=== PATIENT | male | born 1960 | race Caucasian/White ===

== ENCOUNTER 2016-10-02 06:47 | Day surgery (SDC) | payer BC ==
[~2016-10-02 06:47] MED LIST: ACETAMINOPHEN 500 MG TABLET PO PRN; HYDROmorphone HCL 2 MG/ML VIAL IV PRN; MAG HYDROX/ALUMINUM HYD/SIMETH 30 ML UDC PO PRN; MAGNESIUM HYDROXIDE 30 ML UDC PO PRN; ONDANSETRON HCL/PF 2 MG/ML VIAL IV PRN; PROMETHAZINE HCL 25 MG in DEXTROSE 5 % IN WATER 50 ML IV PRN; RINGER'S SOLUTION,LACTATED 1,000 ML IV PRN; ZOLPIDEM TARTRATE 5 MG TABLET PO PRN; ceFAZolin SODIUM 1 GM VIAL IV PRN; diphenhydrAMINE HCL 50 MG/ML VIAL IV PRN; oxyCODONE HCL/ACETAMINOPHEN 1 TAB TABLET PO PRN
[2016-10-02] MEDS ORDERED: RINGER'S SOLUTION,LACTATED 1,000 ML IV ONE ×2 (07:18→08:45)
--- NOTE | 2016-10-02 09:48 | OR ---
Operative Report - Dictated Report Narrative: Date: 10/02/2016 Physician: Sincere Elias M.D. Tipping Machine Operator Automatic: Nicholas Aldrich PA-C Preoperative diagnosis: Right Shoulder supraspinatus rotator cuff tear Postoperative diagnosis: Right Shoulder supraspinatus rotator cuff tear, chondromalacia humeral head Procedure: Right shoulder arthroscopy with mini open rotator cuff repair Anesthesia: General plus regional Complications: None Estimated blood loss: Minimal Specimens: None Retained implants: [employer] 4.5 mm peek helicoil anchor 1, footprint anchor 1 Drains: None Indications: Mr. Chase Is a 56 year-old gentleman who has been followed in my clinic with complaints of shoulder pain consistent rotator cuff pain. Physical exam and diagnostic imaging were consistent with his complaints and concern for full- thickness rotator cuff tear. Conservative measures have failed including, but not limited to, passage of time, activity modification, medications, physical therapy/home exercise program, or injections. The risks, benefits, and alternatives were discussed in clinic. The risks being , bleeding, infection, blood clots, nerve, tendon, ligament, blood vessel injury, persistent pain, arthrosis, stiffness, need for prolonged therapy, need for additional procedures, and persistent symptoms. Consent was obtained in the clinic. Procedure: After marking the correct extremity in the preoperative holding area, a timeout was performed in the operating room. IV antibiotics consisting of Ancef were administered prior to the procedure. A general followed by regional anesthetic was induced by the nurse corporate events director. This was in the supine position, then the patient was transitioned to a beachchair position with all bony prominences well-padded, head in neutral, the nonoperative arm well supported, and the legs padded with SCDs in place. The operative shoulder was then prepped and draped in a standard sterile fashion. Preoperatively the shoulder had full passive range of motion, and know gross instability. After marking out the bony landmarks, saline was infused into the joint through a posterior lateral portal site. A jorge luis incision was made, and the blunt trocar and cannula was introduced into the shoulder joint. An accessory portal was placed in the rotator cuff interval using a spinal needle for guidance. Upon initial evaluation, the biceps tendon showed and no tendinopathy, tear,or stability. The middle glenohumeral ligament was intact. Subscapularis tendon was disrupted. The glenoid showed minimal degenerative change. The humeral head articular surface showed generalized moderate arthrosis without any loose chondral edges. The anterior labrum was intact. The superior labrum was intact. The pouch was and unremarkable. The posterior labrum was intact. The supraspinatus tendon was torn without retraction full-thickness from just behind the biceps tendon to the anterior aspect of the infraspinatus. The infraspinatus tendon was intact. Utilizing a shaver the greater tuberosity and rotator cuff tendon were debrided. An accessory lateral portal was utilized in order to debride additional greater tuberosity tissue as well as to tag the tear for identification in the subacromial space. Attention was then turned to the subacromial space. Subacromial bursectomy was performed utilizing the prior portals. The coracoacromial ligament frayed but intact. The bursal side of the rotator cuff demonstrated a full-thickness tear as identified intra-articularly. The acromial arch was unremarkable. Based on the arthroscopic findings, as well as exam and radiographic findings, it was elected to proceed with a mini open rotator cuff repair. A longitudinal incision centered over the previously identified rotator cuff tear was made just off the edge of the acromion. This was approximately four centimeters in length. The deltoid fascia was split sharply in line with its fibers, and blunt dissection was carried through the deltoid muscle. Any remaining subacromial bursal tissue was debrided in order to expose the underlying rotator cuff tear. The rotator cuff tear appeared to be transverse in orientation. The tuberosity was debrided of its soft tissues producing a bleeding bed for the tendon to be secured to 1 4.5 mm PEEK helicoil anchor was placed just off the articular surface of the humeral head. The camera was placed into the joint to ensure that the biceps tendon was not involved in the repair. A series of horizontal mattress sutures were placed at the prepared edge of the rotator cuff. This allowed for a tension-free return of the tendon to the greater tuberosity. The sutures were then passed longitudinally into 1 4.5 mm PEEK footprint anchor. This was performed and a suture bridge technique. This gave good overall compression to the rotator cuff at the insertion site. The shoulders place a range of motion and had no lift off of the repair site as well as no crepitance or signs of impingement. Full passive range of motion was able to be obtained. Once it was felt that the rotator cuff was adequately repaired, the wounds were thoroughly irrigated. 0 Vicryl was utilized in order to repair the deltoid fascia. 3-0 Vicryl was placed in the subcutaneous tissue. The rotator cuff incision as well as the portal sites were closed with interrupted nylon. Dressings consisting of Xeroform, 4 x 4, ABD, soft roll, and tape were applied. All sponge, needle, blade, and instrument counts were correct prior to closing the wounds. The patient was awoken and transferred to the postanesthesia care unit in stable condition.
[2016-10-02 11:39] VITALS: BP 127/70
[2016-10-02] MEDS ORDERED: SENNOSIDES/DOCUSATE SODIUM 1 TAB TABLET PO SCH (21:00)
== END 2016-10-02 06:48 | disposition home or self-care (01) ==
LOC: AMB 06:47
PROVIDERS: ATTEND Orthopaedic Surgery
PROC: 0LQ10ZZ Repair Right Shoulder Tendon, Open Approach (ICD-10-PCS; 2016-10-02)
PROC: 0RBJ4ZZ Excision of Right Shoulder Joint, Percutaneous Endoscopic Approach (ICD-10-PCS; principal; 2016-10-02 08:00)
DX: M75.101 Unspecified rotator cuff tear or rupture of right shoulder, not specified as traumatic (principal); M94.211 Chondromalacia, right shoulder; I10 Essential (primary) hypertension; Z87.891 Personal history of nicotine dependence; Z68.30 Body mass index [BMI] 30.0-30.9, adult